=== PATIENT | male | born 1945 | race Caucasian/White ===

== ENCOUNTER → 2016-12-05 | Outpatient (CLI) | payer MEDICARE, BC ==
[~2016-12-05] MED LIST: ALLOPURINOL100 MG PO; ASPIR-LOW81 MG PO; CARVEDILOL25 MG PO; CRESTOR20 MG PO; NABUMETONE500 MG PO; TOPROL XL25 MG PO; [UNRECOGNIZED DRUG - OTHER]; [UNRECOGNIZED DRUG - OTHER]; [UNRECOGNIZED DRUG - REMARK]
== END ==
LOC: COL.RAD 11:06
DX: M54.40 Lumbago with sciatica, unspecified side (principal); M50.21 Other cervical disc displacement, high cervical region; M51.26 Other intervertebral disc displacement, lumbar region; M48.06 Spinal stenosis, lumbar region; M51.36 Other intervertebral disc degeneration, lumbar region; Z98.1 Arthrodesis status; Z98.890 Other specified postprocedural states
CPT/HCPCS: A9585

== ENCOUNTER 2018-04-20 07:25 | Day surgery (SDC) | payer MEDICARE, BC ==
[2018-04-20] VITALS (11 sets, daily range): BP systolic 123–156; BP diastolic 72–98; PULSE 50–71; TEMP 97.9
[~2018-04-20] VITALS: Ht 177.8 cm; Wt 103.9 kg
[~2018-04-20 07:25] MED LIST changes: -ALLOPURINOL100 MG PO; -ASPIR-LOW81 MG PO; +ASPIRIN 32325 MG/TAB PO; +B-121000 MCG PO; -CARVEDILOL25 MG PO; +COREG 25MG25 MG/TAB PO; +LOZOL 2.5M2.5 MG/TAB PO; +ZYLOPRIM 300MG300 MG PO; +ZYRTEC ALLERGY10 MG PO; -[UNRECOGNIZED DRUG - OTHER]; -[UNRECOGNIZED DRUG - OTHER]; -[UNRECOGNIZED DRUG - REMARK]
[2018-04-20] MEDS ORDERED: CRESTOR 10MG10 MG PO (08:23)
[2018-04-20] MEDS ORDERED: RELAFEN750 MG PO (08:26)
[2018-04-20] MEDS ORDERED: TESTOSTERONE INJ (08:28)
[2018-04-20] MEDS ORDERED: DIOVAN 160MG160 MG PO (08:38)
[2018-04-20 08:50] LABS: HEMOGLOBIN 13.8 g/dl (13.5-18.0); INR 1.1 (0.8-3.0); MEAN CELL VOLUME 94 fl (80.0-100.0); MEAN CORPUSCULAR HEMOGLOBIN 32 pg (27.0-31.0); MEAN CORPUSCULAR HGB CONC 35 g/dl (33.0-37.0); PLATELET COUNT 144 K/mm3 (130-400); PROTHROMBIN TIME 12.3 SECONDS (9.7-12.8); RED BLOOD COUNT 4.26 M/mm3 (4.20-5.60); REDCELL DISTRIBUTION WIDTH-CV 12.7 % (11.5-14.5)
[2018-04-20 09:25] LABS: CREATININE, serum 1.28 mg/dL (0.66-1.25); POTASSIUM 4.6 mmol/L (3.4-5.0)
== END 2018-04-20 16:40 | disposition home or self-care (01) ==
LOC: COL.CAR 07:25
PROVIDERS: Internal Medicine Cardiovascular Disease
DX: I25.10 Atherosclerotic heart disease of native coronary artery without angina pectoris (principal); R94.39 Abnormal result of other cardiovascular function study; G47.33 Obstructive sleep apnea (adult) (pediatric); E23.0 Hypopituitarism; I25.5 Ischemic cardiomyopathy; I08.0 Rheumatic disorders of both mitral and aortic valves; E78.5 Hyperlipidemia, unspecified; E87.6 Hypokalemia; I25.2 Old myocardial infarction; M19.90 Unspecified osteoarthritis, unspecified site; I10 Essential (primary) hypertension; Z95.1 Presence of aortocoronary bypass graft; Z79.82 Long term (current) use of aspirin; Z87.891 Personal history of nicotine dependence
CPT/HCPCS: J1644; J2250; J2704; J3010; Q9967